=== PATIENT | male | born 1980 | race Two or more races ===

== ENCOUNTER 2023-06-16 13:58 | Emergency (ER) | payer MEDICAID ==
[~2023-06-16] VITALS: Ht 182.9 cm; Wt 103.5 kg
[2023-06-16 14:50] LABS: Basophils # (auto) 0 10 ^3/uL (0-0.2); Eosinophils # (auto) 0.1 10 ^3/uL (0-0.8); Eosinophils % (auto) 0.7 % (0.0-7.0); Lymphocytes # (auto) 1.5 10 ^3/uL (0.4-5.4)
[2023-06-16 14:51] LABS: Basophils % (auto) 0.5 % (0.0-2.0); Hematocrit 50.6 % (41.0-53.0); Hemoglobin 17.7 g/dL (13.5-17.5); Lymphocytes % (auto) 19.3 % (10.0-50.0); Mean Corpuscular Hemoglobin 34.6 pg (28.0-32.0); Mean Corpuscular Hgb Conc. 34.9 g/dL (32.0-36.0); Mean Corpuscular Volume 99.1 fL (80.0-100.0); Monocytes # (auto) 0.4 10 ^3/uL (0-1.3); Neutrophils % (auto) 74.5 % (37.0-80.0); Red Blood Cells 5.11 10^6/uL (4.5-5.90); Red Cell Distribution Width 12.9 % (11.8-14.3)
[2023-06-16 14:55] LABS: Chloride 106 mmol/L (98-107); Potassium 3.9 mmol/L (3.5-5.1); Sodium 138 mmol/L (136-145)
[2023-06-16 14:56] LABS: Anion Gap 4 (5-15); Calcium 9.6 mg/dL (8.5-10.1); Carbon Dioxide 28 mmol/L (20-30)
[2023-06-16 15:01] LABS: BUN/Creatinine Ratio 11.7 (10.0-20.0); Blood Urea Nitrogen 13 mg/dL (9-23); Glucose 97 mg/dL (74-106)
[2023-06-16] MEDS ORDERED: ZOFR4T PO (15:42)
[2023-06-16] MEDS ORDERED: MECL1TAB42 PO (15:42)
[2023-06-16] MEDS: MECLIZINE HCL 25 MG TAB PO ONE (16:35)
[2023-06-16 16:39] VITALS: BP 117/87; PULSE 72; RESP 17; TEMP 99.3; O2SAT 97
== END 2023-06-16 16:55 | disposition home or self-care (01) ==
LOC: ER 13:58
DX: R42 Dizziness and giddiness (principal); R07.89 Other chest pain; Z86.16 Personal history of COVID-19
CPT/HCPCS: 36415; 70450; 71045; 80048; 82962; 84484; 85025; 93005; 99285; J8597

== ENCOUNTER 2024-01-20 12:23 | Inpatient (IN) | payer MEDICAID ==
[~2024-01-20] VITALS: Ht 182.9 cm; Wt 98.5 kg
[~2024-01-20 12:23] MED LIST: MECL1TAB42 PO; ZOFR4T PO
[2024-01-20 12:44] LABS: Basophils # (auto) 0 10 ^3/uL (0-0.2); Eosinophils # (auto) 0.1 10 ^3/uL (0-0.8); Monocytes # (auto) 0.4 10 ^3/uL (0-1.3)
[2024-01-20 12:50] LABS: Basophils % (auto) 0.3 % (0.0-2.0); Eosinophils % (auto) 1.7 % (0.0-7.0); Hematocrit 53.7 % (41.0-53.0); Hemoglobin 18.4 g/dL (13.5-17.5); Lymphocytes # (auto) 1.6 10 ^3/uL (0.4-5.4); Lymphocytes % (auto) 27.9 % (10.0-50.0); Mean Corpuscular Hgb Conc. 34.3 g/dL (32.0-36.0); Mean Corpuscular Volume 102.1 fL (80.0-100.0); Neutrophils # (auto) 3.6 10 ^3/uL (1.6-8.6); Neutrophils % (auto) 63.1 % (37.0-80.0); Nucleated Red Blood Cells % 0.1 %; Platelet Count (auto) 229 10^3/uL (140-450); Red Blood Cells 5.26 10^6/uL (4.5-5.90); Red Cell Distribution Width 12.9 % (11.8-14.3); White Blood Cell 5.8 10^3/uL (4.4-10.8)
[2024-01-20 13:00] LABS: INR 1.08 (0.9-1.15); Partial Thromboplastin Time 31.4 SEC (24.5-34.5); Prothrombin Time 11.4 sec (9.3-11.8)
[2024-01-20 13:02] LABS: Alanine Aminotransferase 23 U/L (7-40); Alkaline Phosphatase 87 U/L (46-116); Anion Gap 10 (5-15); Aspartate Aminotransferase 19 U/L (13-40); BUN/Creatinine Ratio 16.5 (10.0-20.0); Bilirubin, Total 0.7 mg/dL (0.2-1.0); Blood Urea Nitrogen 18 mg/dL (9-23); Calcium 9.8 mg/dL (8.7-10.4); Carbon Dioxide 23 mmol/L (20-31); Chloride 107 mmol/L (98-107); Glucose 124 mg/dL (74-106); Potassium 3.6 mmol/L (3.5-5.1); Sodium 140 mmol/L (136-145); Total Protein 8.2 g/dL (5.7-8.2)
[2024-01-20 13:17] LABS: Urine Bacteria None Seen /hpf (None Seen)
[2024-01-20 13:33] LABS: Urine Blood 2+ /uL (Negative); Urine Clarity Clear (Clear); Urine Color Light-Yellow (Yellow); Urine Protein, UAD Negative (Negative); Urine Specific Gravity 1.012 (1.001-1.035); Urine Urobilinogen Normal (Negative); Urine WBC <1 /hpf (0 - 3)
[2024-01-20] MEDS ORDERED: hydrALAZINE HCL 20 MG/ML VL IV PRN (18:30)
[2024-01-20] MEDS ORDERED: ACETAMINOPHEN 325 MG TAB PO PRN (18:30)
[2024-01-20] MEDS ORDERED: NITROGLYCERIN 0.4 MG SL TAB SL PRN (18:30)
[2024-01-20] MEDS ORDERED: HYDROcodone-ACET 5/325MG TAB PO PRN (18:30)
[2024-01-20] MEDS ORDERED: MORPHINE SULFATE INJ 2 MG/ml SYRG IV PRN ×2 (18:30)
[2024-01-20] MEDS: LISINOPRIL 5 MG TAB PO ONE (18:55)
[2024-01-20] MEDS: ASPirin 325 MG TAB PO ONE (18:56)
[2024-01-20] MEDS: SODIUM CHLORIDE 0.9% 1,000 ML IV SCH (19:07)
[2024-01-20 21:44] LABS: Triglycerides 119 mg/dL (< 150)
[2024-01-20 21:45] LABS: LDL Cholesterol 118 mg/dL (< 100)
[2024-01-20 21:46] LABS: HDL Cholesterol 48 mg/dL (40-59)
[2024-01-20 21:47] LABS: Cholesterol 188 mg/dL (< 200)
[2024-01-20 22:20] VITALS: PULSE 79; RESP 20; O2SAT 97
[2024-01-20] MEDS: ATORVASTATIN 20 MG TAB PO SCH (22:33)
[2024-01-21] VITALS (7 sets, daily range): BP systolic 124–133; BP diastolic 69–81; PULSE 64–83; RESP 16–20; TEMP 98–98.4; O2SAT 94–100
[2024-01-21 07:31] LABS: Basophils # (auto) 0 10 ^3/uL (0-0.2); Eosinophils # (auto) 0.1 10 ^3/uL (0-0.8); Lymphocytes # (auto) 1.8 10 ^3/uL (0.4-5.4); Monocytes # (auto) 0.5 10 ^3/uL (0-1.3); Red Cell Distribution Width 12.9 % (11.8-14.3)
[2024-01-21 07:37] LABS: Alanine Aminotransferase 12 U/L (7-40); Albumin 3.4 g/dL (3.2-4.8); Alkaline Phosphatase 49 U/L (46-116); Anion Gap 9 (5-15); Aspartate Aminotransferase 11 U/L (13-40); BUN/Creatinine Ratio 9.1 (10.0-20.0); Basophils % (auto) 0.4 % (0.0-2.0); Calcium 7.7 mg/dL (8.7-10.4); Carbon Dioxide 21 mmol/L (20-31); Chloride 114 mmol/L (98-107); Eosinophils % (auto) 1.6 % (0.0-7.0); Glucose 77 mg/dL (74-106); Hematocrit 38.4 % (41.0-53.0); Hemoglobin 13.3 g/dL (13.5-17.5); Mean Corpuscular Hemoglobin 35.2 pg (28.0-32.0); Mean Corpuscular Hgb Conc. 34.7 g/dL (32.0-36.0); Mean Corpuscular Volume 101.5 fL (80.0-100.0); Monocytes % (auto) 8.7 % (0.0-12.0); Neutrophils # (auto) 3.1 10 ^3/uL (1.6-8.6); Neutrophils % (auto) 56.3 % (37.0-80.0); Nucleated Red Blood Cells % 0.2 %; Platelet Count (auto) 196 10^3/uL (140-450); Potassium 3.1 mmol/L (3.5-5.1); Red Blood Cells 3.78 10^6/uL (4.5-5.90); Sodium 144 mmol/L (136-145); White Blood Cell 5.5 10^3/uL (4.4-10.8)
[2024-01-21 07:38] LABS: Bilirubin, Total 1.1 mg/dL (0.2-1.0); Total Protein 5.9 g/dL (5.7-8.2)
[2024-01-21 07:42] LABS: Blood Urea Nitrogen 7 mg/dL (9-23)
[2024-01-21] MEDS: POTASSIUM CHL 20 Meq TABLET PO ONE (10:47)
[2024-01-21] MEDS: ASPirin 81 mg TAB PO SCH (10:47)
[2024-01-21] MEDS: ENOXAPARIN SOD 40 MG/0.4 ML SYRINGE SC SCH (10:47)
[2024-01-21] MEDS: LISINOPRIL 5 MG TAB PO SCH (10:48)
[2024-01-21 10:50] LABS: Amphetamine Screen, Urine Neg (NEGATIVE)
[2024-01-21 10:52] LABS: Barbiturate Scree,Urine Neg (NEGATIVE); Benzodiazephine Screen, Urine Neg (NEGATIVE); Cannabinoid Screen, Urine Neg (NEGATIVE); Cocaine Screen, Urine Neg (NEGATIVE); Opiate Scree,Urine Neg (NEGATIVE); Phencyclidine Screen, Urine Neg (NEGATIVE)
[2024-01-21] MEDS ORDERED: AML5T PO (16:43)
== END 2024-01-21 17:45 | disposition home or self-care (01) | DRG 199 ==
LOC: ER 12:23 → TELE 18:26 → TELE-E-ADS 01-21 10:20
PROVIDERS: ADMIT Registered Nurse; ATTEND Nurse Practitioner Acute Care
DX: I16.0 Hypertensive urgency (principal); E66.9 Obesity, unspecified; I10 Essential (primary) hypertension; E87.6 Hypokalemia; E78.5 Hyperlipidemia, unspecified; F41.9 Anxiety disorder, unspecified; Z79.899 Other long term (current) drug therapy; Z68.29 Body mass index [BMI] 29.0-29.9, adult
CPT/HCPCS: 36415; 71045; 80053; 80061; 80307; 81001; 83036; 83735; 84132; 84443; 84484; 85025; 85610; 85730; 93005; 93017; 93306; G0378